=== PATIENT | male | born 1975 | race Caucasian/White ===

== ENCOUNTER 2025-05-31 00:35 | Inpatient (IN) | payer MEDICARE, SELFPAY ==
[2025-05-31 01:51] VITALS: BP 106/50; PULSE 79; RESP 18; TEMP 36.4; O2SAT 98
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
[2025-05-31 07:00] VITALS: BMI 30.8
[2025-05-31 08:00] VITALS: BP 135/79; PULSE 91; RESP 14; TEMP 36.6; O2SAT 96
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
[2025-05-31 20:00] VITALS: BP 121/78; PULSE 79; RESP 16; TEMP 36.7; O2SAT 96
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
[2025-06-01 08:00] VITALS: BP 142/82; PULSE 80; RESP 20; TEMP 36.4; O2SAT 97
[2025-06-01 08:23] LABS: Alanine Aminotransferase 36 U/L (0-40); Albumin Level 4.1 g/dL (3.5-5.0); Alkaline Phosphatase 92 U/L (39-117); Anion Gap 14 (12-20); Aspartate Amino Transferase 33 U/L (5-37); Blood Urea Nitrogen 11 mg/dL (9-16); Calcium 9.6 mg/dL (8.4-10.2); Carbon Dioxide 21 mmol/L (22-29); Chloride 109 mmol/L (96-108); Cholesterol 226 mg/dL (<200); Creatinine Clr Calc Pharmacy 100.2; Estimated Glomerular Filt Rate > 60; HDL Cholesterol 50 mg/dL (>40); Potassium 4.3 mmol/L (3.3-5.1); Sodium 140 mmol/L (135-145); Total Protein 6.8 g/dL (6.5-8.0); Triglycerides 250 mg/dL (<150)
[2025-06-01 08:39] LABS: Thyroid Stimulating Hormone 9.28 uIU/mL (0.32-4.0)
[2025-06-01 08:40] LABS: Vitamin B12 274 pg/mL (200-900)
[2025-06-01 20:00] VITALS: BP 126/61; PULSE 78; RESP 18; TEMP 37; O2SAT 96
[2025-06-02 07:45] VITALS: BP 116/72; PULSE 86; RESP 14; TEMP 36.4; O2SAT 98
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
[2025-06-02 20:00] VITALS: BP 106/57; PULSE 83; RESP 17; TEMP 36.2; O2SAT 98
[2025-06-03 08:00] VITALS: BP 116/56; PULSE 85; RESP 20; TEMP 35.9; O2SAT 99
[2025-06-03 19:47] VITALS: BP 113/62; PULSE 85; RESP 18; TEMP 36.5; O2SAT 97
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
[2025-06-04 08:00] VITALS: BP 126/84; PULSE 80; RESP 16; TEMP 35.9; O2SAT 97
--- NOTE | 2025-06-04 08:55 | P.PNIM_ITS ---
Subjective Subjective Date of Service: 06/04/25 Interval History: Patient is seen for follow up labs, his total cholesterol is 226 with a LDL of greater than 126. TSH noted to be 9.28. Patient reports that he has not been on any cholesterol medicine or thyroid medications. Patient is homeless and obtaining medications will possibly be a challenge. On exam he denies any shortness of breath, dizziness, lightheadedness or any other concerning symptoms. He denies nausea vomiting or diarrhea. Reports that he is eating and drinking adequate fluids. Reports that he is sleeping well. He is cooperative and answers questions appropriately. Review of Systems Denies any shortness of breath, chest pain, headaches, dysuria, abdominal pain or discomfort, nausea, vomiting or diarrhea. Denies fever or chills. Physical Exam 2 Exam: Exam: Alert and oriented X3, able to give good history. Oddly dressed Neuro: CN II-X11 intact, no deficits, visual acuity intact Cardiac: S1 S2 RRR, No ectopy Pulmonary: Lungs clear to auscultation, No increased WOB. Abdominal: BS active in all 4 quadrants, no guarding or tenderness MSK: Strength 5/5 upper and lower extremities : Deferred Extremities: No edema in lower extremities Psych: mood stable, Quiet and cooperative. Skin: Warm and dry, Intact Vital Signs: Vital Signs: Last Vital Signs Temp 96.7 F L 06/04/25 08:00 Pulse 80 06/04/25 08:00 Resp 16 06/04/25 08:00 BP 126/84 06/04/25 08:00 Pulse Ox 97 06/04/25 08:00 O2 Del Method Room Air 06/04/25 08:00 BMI result Body Mass Index 30.8 Objective Data Active Medications Acetaminophen (Acetaminophen 325 Mg Tablet) 650 mg PO Q6H PRN PRN Reason: Headache/Pain, Scale 1-10 Last Admin: 06/03/25 09:21 Dose: 650 mg Documented By: ANTONIA Al Hydroxide/Mg Hydroxide (Magnesium Hydrox/Alum Hydrox 30 Ml Oral.Susp) 30 ml PO Q6H PRN PRN Reason: Heartburn/Nausea Hydroxyzine HCl (Hydroxyzine Hcl 25 Mg Tablet) 25 mg PO Q6H PRN PRN Reason: mild anxiety Magnesium Hydroxide (Milk Of Magnesia 30 Ml Oral.Susp) 30 ml PO DAILY PRN PRN Reason: Constipation Nicotine Polacrilex (Nicotine Polacrilex 2 Mg Gum) 2 mg BUCCAL Q2H PRN PRN Reason: Nicotine Cravings Olanzapine (Olanzapine 10 Mg Tablet) 10 mg PO DAILY [facility] Last Admin: 06/04/25 08:26 Dose: 10 mg Documented By: DOSTALD Olanzapine (Olanzapine 10 Mg Tablet) 20 mg PO BEDTIME [facility] Last Admin: 06/03/25 21:25 Dose: 20 mg Documented By: KENNYK Labs 06/01/25 07:38 Assessment and Plan (1) Hypothyroidism: Status: Acute Plan 49-year-old male with history of cognitive impairment, schizoaffective disorder, hyperlipidemia, hypothyroidism admitted on section 12 from [facility] due to acute psychosis. Schizoaffective disorder/cognitive impairment Treatment per psychiatric team Hyperlipidemia Start Lipitor Recheck lipid panel in 6 weeks LFTs in 1 week Baseline AST 33/ALT 36 ALK PHOS 92. Hypothyroidism TSH 9.28 Start levothyroxine 25 mcg daily Recheck TSH in 6 weeks There are no acute medical issues at this time. Thank you for allowing us to participate in the care of this patient. If any acute medical issues arise feel free to re-consult Quality Stroke Does the patient have a stroke diagnosis?: No VTE Prior VTE?: No VTE Risk Level:: Medical - low VTE Device Contraindication: Treatment Not Indicated VTE Drug Contraindication: Treatment Not Indicated
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
[2025-06-04 20:06] VITALS: BP 129/70; PULSE 68; RESP 16; TEMP 36.3; O2SAT 97
[2025-06-05 08:00] VITALS: BP 139/83; PULSE 90; RESP 14; O2SAT 97
--- NOTE | 2025-06-05 08:50 | PC.NURSE ---
Gaurav signed a 3-day letter, will be up on Friday 06/08
[2025-06-05 20:00] VITALS: BP 105/58; PULSE 81; RESP 14; TEMP 36.9; O2SAT 98
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
[2025-06-06 08:00] VITALS: BP 122/57; PULSE 83; RESP 16; TEMP 36.5; O2SAT 97
[2025-06-06 20:00] VITALS: BP 113/65; PULSE 73; RESP 20; TEMP 36.8; O2SAT 98
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
[2025-06-07 07:00] VITALS: BMI 30.8
[2025-06-07 08:00] VITALS: BP 115/82; PULSE 74; RESP 14; TEMP 36.4; O2SAT 97
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
[2025-06-07 20:00] VITALS: BP 116/72; PULSE 84; RESP 16; TEMP 36.6; O2SAT 98
[2025-06-08 03:40] VITALS: BP 120/67
[2025-06-08 07:58] VITALS: BP 112/78; PULSE 66; RESP 20; TEMP 36.5; O2SAT 98
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
== END 2025-06-08 10:40 | disposition home or self-care (01) | DRG 885 ==
PROVIDERS: Social Worker; Admitting Provider Psychiatry & Neurology Psychiatry; Visit Provider Psychiatry & Neurology Psychiatry
DX: F25.0 Schizoaffective disorder, bipolar type (principal); Z59.02 Unsheltered homelessness; E78.5 Hyperlipidemia, unspecified; E03.9 Hypothyroidism, unspecified; F17.210 Nicotine dependence, cigarettes, uncomplicated; Z71.6 Tobacco abuse counseling; Z79.890 Hormone replacement therapy; Z79.899 Other long term (current) drug therapy
CPT/HCPCS: 36415; 80053; 80061; 82607; 83036; 84443

== ENCOUNTER → 2025-05-31 00:35 | Outpatient (BNV) | payer MEDICARE, SELFPAY | PROVIDERS: Admitting Provider Psychiatry & Neurology Psychiatry; Visit Provider Physician Assistant Medical | DX: Z00.8 Encounter for other general examination (principal) | CPT/HCPCS: 99221 ==

== ENCOUNTER → 2025-05-31 00:35 | Outpatient (BNV) | payer MEDICARE, SELFPAY | PROVIDERS: Admitting Provider Psychiatry & Neurology Psychiatry; Visit Provider Social Worker | DX: F25.0 Schizoaffective disorder, bipolar type (principal) | CPT/HCPCS: 90792; 99231; 99232; 99238 ==